=== PATIENT | female | born 1975 | race Caucasian/White ===

== ENCOUNTER 2018-09-10 12:29 | Emergency (ER) | payer OTHER ==
--- NOTE | 2018-09-10 12:54 | ERPHSYRPT ---
- History of Present Illness Time Seen by Provider: 09/10/18 12:45 Historian: patient Exam Limitations: no limitations Patient Subjective Stated Complaint: Pt states "For the past few days I have been more bloated, gassy, and had horrific heartburn. I notice it more when certain foods and now the upper right side of my stomach really hurts." Triage Nursing Assessment: Pt alert and oriented X 3, skin pwd. Pt ambulates with an upright steady gait, able to speak in clear full sentences. Pt in no apprent respiratory distress. Physician History: 42 y/o over weight white female presents with several month h/o bloating, belchy , gassy with assoc ruq abd pain. pt states sx worsen with fatty foods. last few days pts sx worse. pt had ground beef last pm and turkey [place] this am. pt has heartburn at times. no prior abd surgeries. pt denies cp. Timing/Duration: week(s), intermittent, worse (in the last few days) Quality: burning, stabbing Abdominal Pain Onset Location: RUQ, epigastric Pain Radiation: no radiation Severity of Pain-Max: moderate Severity of Pain-Current: moderate Modifying Factors: Improves With: eating Associated Symptoms: heartburn, nausea, other (bloated belchy gassy), No chest pain, No diarrhea Previous symptoms: same symptoms as today Allergies/Adverse Reactions: Penicillins Allergy (Intermediate, Verified 09/10/18 12:45) high fever Home Medications: Clonazepam [Klonopin] 0.25 mg PO DAILY PRN 09/10/18 [History] Lisinopril 20 mg [Zestril 20 MG] 20 mg PO DAILY 09/10/18 [History] Hx Tetanus, Diphtheria Vaccination/Date Given: No Hx Influenza Vaccination/Date Given: No Hx Pneumococcal Vaccination/Date Given: No Immunizations Up to Date: Yes - Review of Systems Constitutional: No Symptoms Eyes: No Symptoms Ears, Nose, & Throat: No Symptoms Respiratory: No Symptoms Cardiac: No Symptoms Abdominal/Gastrointestinal: Abdominal Pain, Nausea, Appetite Changes Genitourinary Symptoms: No Symptoms Musculoskeletal: No Symptoms Skin: No Symptoms Neurological: No Symptoms Psychological: No Symptoms Endocrine: No Symptoms Hematologic/Lymphatic: No Symptoms Immunological/Allergic: No Symptoms All Other Systems: Reviewed and Negative - Past Medical History Pertinent Past Medical History: Yes Neurological History: No Pertinent History ENT History: No Pertinent History Cardiac History: Hypertension Respiratory History: No Pertinent History Endocrine Medical History: No Pertinent History Musculoskeletal History: No Pertinent History GI Medical History: GERD History: No Pertinent History Psycho-Social History: Anxiety Female Reproductive Disorders: Other Other Medical History: endometriosis - Past Surgical History Past Surgical History: Yes Neuro Surgical History: No Pertinent History Cardiac: No Pertinent History Respiratory: No Pertinent History Gastrointestinal: No Pertinent History Genitourinary: No Pertinent History Musculoskeletal: No Pertinent History Female Surgical History: No Pertinent History Other Surgical History: bunion removed. cyst. laminectomy and fusion - Social History Smoking Status: Current every day smoker How long have you smoked: years Exposure to second hand smoke: Yes Drug Use: none Patient Lives Alone: No - Female History Hx Last Menstrual Period: 08/30/2018 Hx Now: No - Nursing Vital Signs Nursing Vital Signs: Initial Vital Signs Temperature 99.5 F 09/10/18 12:38 Pulse Rate 124 H 09/10/18 12:38 Respiratory Rate 18 09/10/18 12:38 Blood Pressure 154/107 09/10/18 12:38 O2 Sat by Pulse Oximetry 100 09/10/18 12:38 Pain Scale Pain Intensity 6 - Physical Exam General Appearance: mild distress, alert, anxiety Eye Exam: PERRL/EOMI, eyes nml inspection Ears, Nose, Throat Exam: normal ENT inspection, moist mucous membranes Neck Exam: normal inspection, non-tender, supple, full range of motion Respiratory Exam: normal breath sounds, lungs clear, airway intact, No chest tenderness, No respiratory distress, No accessory muscle use, No rhonchi, No wheezing, No stridor Cardiovascular Exam: regular rate/rhythm, normal heart sounds, normal peripheral pulses Gastrointestinal/Abdomen Exam: soft, normal bowel sounds, tenderness (mild to mod ruq), No guarding, No rebound Pelvic Exam: not done Rectal Exam: not done Back Exam: normal inspection, normal range of motion, No CVA tenderness, No vertebral tenderness Extremity Exam: normal inspection Neurologic Exam: alert, oriented x 3, cooperative, motivational speaker II-XII nml as tested Skin Exam: normal color, warm, dry Lymphatic Exam: No adenopathy SpO2 Interpretation: normal SpO2: 100 Oxygen Delivery: Room Air - Course Nursing assessment & vital signs reviewed: Yes Ordered Tests: Active Orders 24 hr Category Date Time Status Clean Catch Urine Specimen STAT Care 09/10/18 12:47 Active IV Insertion STAT Care 09/10/18 12:47 Active GALLBLADDER [US] Stat Exams 09/10/18 14:06 Completed AMYLASE Stat Lab 09/10/18 12:45 Completed CBC W DIFF Stat Lab 09/10/18 12:45 Completed CMP Stat Lab 09/10/18 12:45 Completed HCG,QUALITATIVE URINE Stat Lab 09/10/18 13:02 Completed LIPASE Stat Lab 09/10/18 12:45 Completed Lactic Acid Stat Lab 09/10/18 13:14 Results UA W/RFX UR CULTURE Stat Lab 09/10/18 13:02 Completed Medication Summary Generic Name Dose Route Start Last Admin Trade Name Freq PRN Reason Stop Dose Admin Sodium Chloride 1,000 mls @ 999 mls/hr 09/10/18 13:38 09/10/18 13:42 Sodium Chloride 0.9% 1000 Ml IV 09/10/18 14:38 999 mls/hr .Q1H1M STA Administration Discontinued Medications Generic Name Dose Route Start Last Admin Trade Name Freq PRN Reason Stop Dose Admin Al Hydrox/Mg Hydrox/Simethicone Confirm 09/10/18 13:31 Maalox Es 30 Ml Unit Dose Administered 09/10/18 13:32 Dose 30 ml .ROUTE .STK-MED ONE Hydromorphone HCl 0.5 mg 09/10/18 12:56 09/10/18 13:02 Hydromorphone 1 Mg/Ml Ampule IV 09/10/18 12:57 Not Given STAT ONE Hydromorphone HCl Confirm 09/10/18 12:59 Hydromorphone 1 Mg/Ml Ampule Administered 09/10/18 13:00 Dose 1 mg .ROUTE .STK-MED ONE Sodium Chloride Confirm 09/10/18 13:39 Sodium Chloride 0.9% 1000 Ml Administered 09/10/18 13:40 Dose 1,000 mls @ ud .ROUTE .STK-MED ONE Lidocaine HCl Confirm 09/10/18 13:31 Xylocaine Hcl Viscous * Administered 09/10/18 13:32 Dose 15 ml .ROUTE .STK-MED ONE Magnesium Hydroxide 45 ml 09/10/18 13:20 09/10/18 13:35 Gi Cocktail 45 Ml (Maalox/Lidocaine) PO 09/10/18 13:21 45 ml STAT ONE Administration Ondansetron HCl 4 mg 09/10/18 12:56 09/10/18 13:02 Zofran 4 Mg/2 Ml Vial IV 09/10/18 12:57 Not Given STAT ONE Ondansetron HCl Confirm 09/10/18 12:59 Zofran 4 Mg/2 Ml Vial Administered 09/10/18 13:00 Dose 4 mg .ROUTE .STK-MED ONE Lab/Rad Data: Laboratory Result Diagrams 09/10/18 12:45 09/10/18 12:45 Laboratory Results 09/10/18 09/10/18 09/10/18 Range/Units 13:14 13:02 13:02 WBC (4.0-10.5) K/mm3 RBC (4.1-5.4) M/mm3 Hgb (12.0-16.0) gm/dl Hct (35-47) % MCV (78-100) fl MCH (26-32) pg MCHC (32-36) g/dl RDW (11.5-14.0) % Plt Count (150-450) K/mm3 MPV (6-9.5) fl Gran % (36.0-66.0) % Eos # (Auto) (0-0.5) Absolute Lymphs (auto) (1.0-4.6) Absolute Monos (auto) (0.0-1.3) Lymphocytes % (24.0-44.0) % Monocytes % (0.0-12.0) % Eosinophils % (0.00-5.0) % Basophils % (0.0-0.4) % Absolute Granulocytes (1.4-6.9) Basophils # (0-0.4) Sodium (137-145) mmol/L Potassium (3.5-5.1) mmol/L Chloride (98-107) mmol/L Carbon Dioxide (22-30) mmol/L Anion Gap (5-15) MEQ/L BUN (7-17) mg/dL Creatinine (0.52-1.04) mg/dL Estimated GFR ML/MIN Glucose (74-106) mg/dL Lactic Acid 3.1 H (0.4-2.0) Calcium (8.4-10.2) mg/dL Total Bilirubin (0.2-1.3) mg/dL AST (14-36) U/L ALT (0-35) U/L Alkaline Phosphatase (38-126) U/L Serum Total Protein (6.3-8.2) g/dL Albumin (3.5-5.0) g/dL Amylase (30-110) U/L Lipase (23-300) U/L Urine Color YELLOW (YELLOW) Urine Appearance CLEAR (CLEAR) Urine pH 5.0 (5-6) Ur Specific [place] 1.012 (1.005-1.025) Urine Protein NEGATIVE (Negative) Urine Ketones NEGATIVE (NEGATIVE) Urine Blood NEGATIVE (0-5) Billy/ul Urine Nitrite NEGATIVE (NEGATIVE) Urine Bilirubin NEGATIVE (NEGATIVE) Urine Urobilinogen NEGATIVE (0-1) mg/dL Ur Leukocyte Esterase NEGATIVE (NEGATIVE) Urine WBC (Auto) NONE (0-5) /HPF Urine RBC (Auto) NONE SEEN (0-2) /HPF U Epithel Cells (Auto) RARE (FEW) /HPF Urine Bacteria (Auto) NONE (NEGATIVE) /HPF Urine Mucus (Auto) SLIGHT (NEGATIVE) /HPF Urine Culture Reflexed NO (NO) Urine Glucose NEGATIVE (NEGATIVE) mg/dL Urine HCG, Qual NEGATIVE (Negative) 09/10/18 09/10/18 Range/Units 12:45 12:45 WBC 8.1 (4.0-10.5) K/mm3 RBC 4.52 (4.1-5.4) M/mm3 Hgb 15.5 (12.0-16.0) gm/dl Hct 44.6 (35-47) % MCV 98.7 (78-100) fl MCH 34.3 H (26-32) pg MCHC 34.8 (32-36) g/dl RDW 12.5 (11.5-14.0) % Plt Count 311 (150-450) K/mm3 MPV 9.4 (6-9.5) fl Gran % 50.6 (36.0-66.0) % Eos # (Auto) 0.11 (0-0.5) Absolute Lymphs (auto) 3.31 (1.0-4.6) Absolute Monos (auto) 0.56 (0.0-1.3) Lymphocytes % 40.9 (24.0-44.0) % Monocytes % 6.9 (0.0-12.0) % Eosinophils % 1.4 (0.00-5.0) % Basophils % 0.2 (0.0-0.4) % Absolute Granulocytes 4.09 (1.4-6.9) Basophils # 0.02 (0-0.4) Sodium 137 (137-145) mmol/L Potassium 3.6 (3.5-5.1) mmol/L Chloride 100 (98-107) mmol/L Carbon Dioxide 25 (22-30) mmol/L Anion Gap 14.7 (5-15) MEQ/L BUN 10 (7-17) mg/dL Creatinine 0.65 (0.52-1.04) mg/dL Estimated GFR > 60.0 ML/MIN Glucose 89 (74-106) mg/dL Lactic Acid (0.4-2.0) Calcium 9.1 (8.4-10.2) mg/dL Total Bilirubin 0.60 (0.2-1.3) mg/dL AST 36 (14-36) U/L ALT 49 H (0-35) U/L Alkaline Phosphatase 91 (38-126) U/L Serum Total Protein 8.0 (6.3-8.2) g/dL Albumin 4.8 (3.5-5.0) g/dL Amylase 67 (30-110) U/L Lipase 114 (23-300) U/L Urine Color (YELLOW) Urine Appearance (CLEAR) Urine pH (5-6) Ur Specific [place] (1.005-1.025) Urine Protein (Negative) Urine Ketones (NEGATIVE) Urine Blood (0-5) Billy/ul Urine Nitrite (NEGATIVE) Urine Bilirubin (NEGATIVE) Urine Urobilinogen (0-1) mg/dL Ur Leukocyte Esterase (NEGATIVE) Urine WBC (Auto) (0-5) /HPF Urine RBC (Auto) (0-2) /HPF U Epithel Cells (Auto) (FEW) /HPF Urine Bacteria (Auto) (NEGATIVE) /HPF Urine Mucus (Auto) (NEGATIVE) /HPF Urine Culture Reflexed (NO) Urine Glucose (NEGATIVE) mg/dL Urine HCG, Qual (Negative) - Progress Progress: improved, pain not gone completely, re-examined Progress Note: 09/10/18 14:17 gallbladder u/s-contracted gallbladder. no other acute findings Counseled pt/family regarding: lab results, diagnosis, need for follow-up, rad results - Departure Time of Disposition: 14:17 Departure Disposition: Home Clinical Impression: Right upper quadrant abdominal pain Condition: Stable Critical Care Time: No Referrals: MILENA BATISTA [Primary Care Provider] - Additional Instructions: clear liquid diet. avoid fatty, greasy foods. follow up with primary doctor for further management
[2018-09-10] MEDS ORDERED: Hydromorphone 1 mg/ml Ampule IV ONE (12:56)
[2018-09-10] MEDS ORDERED: Zofran 4 MG/2 ML VIAL IV ONE (12:56)
[2018-09-10] MEDS ORDERED: Zofran 4 MG/2 ML VIAL ONE (12:59)
[2018-09-10] MEDS ORDERED: Hydromorphone 1 mg/ml Ampule ONE (12:59)
[2018-09-10 13:14] LABS: BASOPHIL % 0.2 % (0.0-0.4); Basophil (Absolute #) 0.02 (0-0.4); Eosinophil % 1.4 % (0.00-5.0); Eosinophil (Absolute #) 0.11 (0-0.5); Granulocytes % 50.6 % (36.0-66.0); Hematocrit 44.6 % (35-47); Hemoglobin 15.5 gm/dl (12.0-16.0); Lymphocyte (Absolute #) 3.31 (1.0-4.6); Lymphocytes % 40.9 % (24.0-44.0); Mean Cell Volume 98.7 fl (78-100); Mean Corpuscular Hemoglobin 34.3 pg (26-32); Mean Corpuscular Hgb Concent. 34.8 g/dl (32-36); Mean Platelet Volume 9.4 fl (6-9.5); Monocyte (Absolute #) 0.56 (0.0-1.3); Monocytes % 6.9 % (0.0-12.0); Platelet Count 311 K/mm3 (150-450); Red Blood Count 4.52 M/mm3 (4.1-5.4); Red Cell Distribution Width 12.5 % (11.5-14.0); White Blood Count 8.1 K/mm3 (4.0-10.5)
[2018-09-10 13:18] LABS: Lactic Acid 3.1 (0.4-2.0)
[2018-09-10] MEDS ORDERED: GI COCKTAIL 45 ML (Maalox/Lidocaine) PO ONE (13:20)
[2018-09-10 13:29] LABS: Appearance CLEAR (CLEAR); Bilirubin NEGATIVE (NEGATIVE); Blood NEGATIVE Ery/ul (0-5); Epithelial Cells RARE /HPF (FEW); Glucose NEGATIVE (NEGATIVE); Ketones NEGATIVE (NEGATIVE); Leukocyte Esterase NEGATIVE (NEGATIVE); Mucus SLIGHT /HPF (NEGATIVE); Nitrite NEGATIVE (NEGATIVE); Protein,Urine Dip NEGATIVE (Negative); RBC NONE SEEN /HPF (0-2); Specific Gravity 1.012 (1.005-1.025); Urobilinogen NEGATIVE mg/dL (0-1)
[2018-09-10] MEDS ORDERED: MAALOX ES 30 ML UNIT DOSE ONE (13:31)
[2018-09-10] MEDS ORDERED: XYLOCAINE HCl Viscous ONE (13:31)
[2018-09-10] MEDS ORDERED: Sodium Chloride 0.9% 1000 ML 1,000 ML IV STA (13:38)
[2018-09-10] MEDS ORDERED: Sodium Chloride 0.9% 1000 ML 1,000 ML ONE (13:39)
[2018-09-10 13:41] LABS: ALBUMIN 4.8 g/dL (3.5-5.0); ALKALINE PHOSPHATASE 91 U/L (38-126); AMYLASE 67 U/L (30-110); ANION GAP 14.7 MEQ/L (5-15); BLOOD UREA NITROGEN 10 mg/dL (7-17); CHLORIDE 100 mmol/L (98-107); Calcium 9.1 mg/dL (8.4-10.2); Carbon Dioxide 25 mmol/L (22-30); Creatinine 1 0.65 mg/dL (0.52-1.04); Glucose 89 mg/dL (74-106); LIPASE 114 U/L (23-300); Potassium 3.6 mmol/L (3.5-5.1); SGOT/AST 36 U/L (14-36); SGPT/ALT 49 U/L (0-35); SODIUM 137 mmol/L (137-145)
[2018-09-10 14:06] VITALS: BP 128/100; PULSE 92
--- NOTE | 2018-09-10 14:14 | XRAY ---
Indication: Abdomen pain, gas, and bloating. Patient ate 2 hours prior to exam. Gallbladder partially contracted due to recent meal. No gallstones, wall thickening, or pericholecystic fluid. Common bile duct measures 4.9 mm. Remaining visualized portions of the liver, pancreas, and right kidney appear sonographically unremarkable. Right kidney measures 12.8 cm in length. No ascites. Impression: Partially contracted gallbladder in a otherwise negative gallbladder sonogram.
[2018-09-10 14:19] VITALS: O2SAT 100
== END 2018-09-10 14:46 | disposition home or self-care (01) ==
LOC: ED 12:29
DX: R10.11 Right upper quadrant pain (principal); R10.13 Epigastric pain; R12 Heartburn; R11.0 Nausea; I10 Essential (primary) hypertension; Z79.899 Other long term (current) drug therapy
CPT/HCPCS: 36000; 36415; 76705; 80053; 81001; 82150; 83605; 83690; 84703; 85025; 96360; 99284; J1170; J2405; A9270-GY